=== PATIENT | female | born 1930 | race Caucasian/White ===

== ENCOUNTER 2017-03-09 23:49 | Emergency (ER) | payer MEDICARE ==
[2017-03-10 00:17] VITALS: O2SAT 98
--- NOTE | 2017-03-10 00:36 | ERPHSYRPT ---
- History of Present Illness Time Seen by Provider: 03/10/17 00:26 Source: patient Exam Limitations: no limitations Patient Subjective Stated Complaint: pt states she has had a nosebleed since 1900 tonight. Triage Nursing Assessment: pt alert and oriented. answes questions approp. pt ambultory with steady gait noted. respirations nonlbored with lungs cta. skin pink warm and dry. no acitve bleeding from nares noted at thsi time. Physician History: 86 y/o female with pacemaker who is on eliquis comes to the ER for nose bleeding that has stopped prior to arriving to the ER. Pt states that she has been on eliquis for years and has never had any issues with bleeding. Pt denies any change in medication, no sinus congestion or runny nose. Timing/Duration: abrupt onset ENT Location: nose Prearrival Treatment: no prearrival treatment Modifying Factors: Improves With: nothing Allergies/Adverse Reactions: No Known Drug Allergies Allergy (Verified 03/10/17 00:17) Hx Tetanus, Diphtheria Vaccination/Date Given: No Hx Influenza Vaccination/Date Given: Yes Hx Pneumococcal Vaccination/Date Given: Yes - Review of Systems Constitutional: No Fever, No Chills Eyes: No Symptoms Ears, Nose, & Throat: Epistaxis Respiratory: No Cough, No Dyspnea Cardiac: No Chest Pain, No Edema, No Syncope Abdominal/Gastrointestinal: No Abdominal Pain, No Nausea, No Vomiting, No Diarrhea Genitourinary Symptoms: No Dysuria Musculoskeletal: No Back Pain, No Neck Pain Skin: No Rash Neurological: No Dizziness, No Focal Weakness, No Sensory Changes Psychological: No Symptoms Endocrine: No Symptoms All Other Systems: Reviewed and Negative - Past Medical History Pertinent Past Medical History: Yes Neurological History: No Pertinent History ENT History: No Pertinent History Cardiac History: Coronary Artery Disease, High Cholesterol, Hypertension Respiratory History: No Pertinent History Endocrine Medical History: Diabetes Type II Musculoskeletal History: Arthritis GI Medical History: GERD History: No Pertinent History Psycho-Social History: No Pertinent History Female Reproductive Disorders: No Pertinent History - Past Surgical History Past Surgical History: Yes Neuro Surgical History: No Pertinent History Cardiac: CABG, Pacemaker Respiratory: No Pertinent History Gastrointestinal: No Pertinent History Genitourinary: No Pertinent History Musculoskeletal: No Pertinent History Female Surgical History: Tubal Ligation - Social History Smoking Status: Never smoker Exposure to second hand smoke: No Drug Use: none Patient Lives Alone: Yes - Nursing Vital Signs Nursing Vital Signs: Initial Vital Signs Temperature 98.5 F 03/10/17 00:03 Pulse Rate 81 03/10/17 00:03 Respiratory Rate 18 03/10/17 00:03 Blood Pressure 179/80 03/10/17 00:03 O2 Sat by Pulse Oximetry 98 03/10/17 00:03 Pain Scale Pain Intensity 0 - Physical Exam General Appearance: no apparent distress, alert Eye Exam: bilateral eye: PERRL, EOMI Nasal Exam: normal inspection, No active bleeding, No discharge, No dried blood Throat Exam: pharynx normal, moist mucus membranes, No tonsillar exudate Neck Exam: supple Cardiovascular/Respiratory Exam: normal breath sounds, regular rate/rhythm Abdominal Exam: non-tender, soft Neurologic Exam: alert, oriented x 3, sensation nml, No motor deficits Skin Exam: normal color, warm, dry SpO2: 98 Oxygen Delivery: Room Air - Course Nursing assessment & vital signs reviewed: Yes Ordered Tests: Active Orders 24 hr Category Date Time Status CBC Stat Lab 03/10/17 00:45 Completed PROTIME WITH INR Stat Lab 03/10/17 00:45 Completed PTT Stat Lab 03/10/17 00:45 Completed Lab/Rad Data: Laboratory Result Diagrams 03/10/17 00:45 Laboratory Results 03/10/17 03/10/17 Range/Units 00:45 00:45 WBC 9.1 (4.0-10.5) K/mm3 RBC 3.82 L (4.1-5.4) M/mm3 Hgb 11.1 L (12.0-16.0) gm/dl Hct 33.0 L (35-47) % MCV 86.4 (78-100) fl MCH 29.0 (26-32) pg MCHC 33.6 (32-36) g/dl RDW 13.3 (11.5-14.0) % Plt Count 275 (150-450) K/mm3 MPV 9.5 (6-9.5) fl INR 1.26 (0.8-3.0) APTT 35.2 (25.3-37.0) SECONDS - Progress Progress: improved Progress Note: 03/10/17 01:19 The CBC and PT/PTT do not show any acute findings. The patient is not having any nose bleeding. The patient will be d/c home with F/U with ENT Dr Dozier for epistaxis. - Departure Time of Disposition: 01:22 Departure Disposition: Home Clinical Impression: Epistaxis Condition: Stable Critical Care Time: No Referrals: LISY HARP [Primary Care Provider] - MUSTAPHA DOZIER MD [CONSULTING PHYSICIAN] - Instructions: Nosebleeds (DC) Additional Instructions: Follow up with ENTDr Dozier in the next 1-2 days for further recommendations.
[2017-03-10 00:53] LABS: Hemoglobin 11.1 gm/dl (12.0-16.0); Mean Cell Volume 86.4 fl (78-100); Mean Corpuscular Hgb Concent. 33.6 g/dl (32-36); Mean Platelet Volume 9.5 fl (6-9.5); Platelet Count 275 K/mm3 (150-450); Red Blood Count 3.82 M/mm3 (4.1-5.4); Red Cell Distribution Width 13.3 % (11.5-14.0); White Blood Count 9.1 K/mm3 (4.0-10.5)
[2017-03-10 01:15] LABS: INR 1.26 (0.8-3.0)
[2017-03-10 01:18] LABS: PTT 35.2 SECONDS (25.3-37.0)
[2017-03-10 01:40] VITALS: BP 123/66; PULSE 78
== END 2017-03-10 01:40 | disposition home or self-care (01) ==
LOC: ED 23:49
DX: R04.0 Epistaxis (principal); Z79.01 Long term (current) use of anticoagulants
CPT/HCPCS: 36415; 85027; 85610; 85730; 99282